=== PATIENT | female | born 1935 | race Caucasian/White ===

== ENCOUNTER → 2016-05-20 | Outpatient (REF) | payer MEDICARE ==
[2016-05-20 14:19] LABS: BASO % 0.6 % (0.0-1.0); EOS # 0.2 K/mm3 (0.0-0.50); EOS % 3.8 % (0.0-3.0); LARGE UNSTAINED CELL # 0.1 K/mm3 (0.0-0.4); LARGE UNSTAINED CELL % 1.9 % (0.0-4.0); LYMPH # 1.2 K/mm3 (1.5-4.5); LYMPH % 17.9 % (24.0-44.0); MEAN CORPUSCULAR HEMOGLOBIN 30.7 pg (27.0-33.0); MEAN CORPUSCULAR HGB CONC 33.1 g/dl (32.0-36.5); MEAN CORPUSCULAR VOLUME 92.9 fl (80.0-96.0); MONO # 0.5 K/mm3 (0.0-0.8); MONO % 6.9 % (0.0-5.0); NEUTROPHILS # 4.6 K/mm3 (1.8-7.7); PLATELET COUNT, AUTOMATED 251 k/mm3 (150-450); RED CELL DISTRIBUTION WIDTH 12.5 % (11.5-14.5); WHITE BLOOD COUNT 6.6 K/mm3 (4.0-10.0)
[2016-05-20 14:41] LABS: FOLATE > 24.0 NG/ML; VITAMIN B12 LEVEL 651 PG/ML
[2016-05-20 14:42] LABS: ALBUMIN 3.8 GM/DL (3.2-5.2); ALBUMIN/GLOBULIN RATIO 1.27 (1.00-1.93); ALKALINE PHOSPHATASE 67 U/L (45-117); ALT/SGPT 22 U/L (12-78); ANION GAP 8 MEQ/L (8-16); AST/SGOT 13 U/L (15-37); BILIRUBIN,TOTAL 0.4 MG/DL (0.2-1.0); BLOOD UREA NITROGEN 19 MG/DL (7-18); CALCIUM LEVEL 9.6 MG/DL (8.8-10.2); CARBON DIOXIDE LEVEL 30 MEQ/L (21-32); CHLORIDE LEVEL 105 MEQ/L (98-107); GLOMERULAR FILTRATION RATE > 60.0 (>32); GLUCOSE, FASTING 95 MG/DL (83-110); POTASSIUM SERUM 4.1 MEQ/L (3.5-5.1); SODIUM LEVEL 143 MEQ/L (136-145); TOTAL PROTEIN 6.8 GM/DL (6.4-8.2)
[2016-05-20 15:28] LABS: ERYTHROCYTE SEDIMENTATION RATE 49 mm/hr (0-30)
[2016-05-22 00:17] LABS: Lyme Disease IgG/IgM Antibodie <0.91 ISR (0.00-0.90); Lyme Disease IgM Ab Quantitati <0.80 index (0.00-0.79)
[2016-05-23 12:58] LABS: ALBUMIN 3.93 GM/DL (3.29-5.55); ALBUMIN % 57.8 % (55.8-66.1); GAMMA GLOBULIN % 10.2 % (11.1-18.8)
[2016-05-24 00:06] LABS: VITAMIN E LEVEL 12.9 mg/L (6.5-21.5)
== END ==
LOC: M LABNEURO 13:53
PROVIDERS: ATTEND Psychiatry & Neurology Neurology
DX: G31.84 Mild cognitive impairment of uncertain or unknown etiology (principal)

== ENCOUNTER 2017-12-28 05:41 | Day surgery (SDC) | payer MEDICARE ==
[2017-12-28] MEDS: PROPARACAINE 0.5% OPHTH SOL 15ML OS (06:30)
[2017-12-28] MEDS: OFLOXACIN 0.3 % (OCUFLOX) OPTH SOL 5ML OS (06:30)
[2017-12-28] MEDS: PHENYLEPHRINE 2.5% OPHTH SOL 2ML OS (06:30)
[2017-12-28] MEDS: TROPICAMIDE 1% OPHTH SOLN 2ML OS (06:30)
[2017-12-28] MEDS ORDERED: fentaNYL 100 MCG/2 ML INJECTION (J3010) As Ordered (06:58)
[2017-12-28] MEDS ORDERED: MIDAZOLAM INJ 2 MG/2 ML VIAL (J2250) As Ordered (06:58)
[2017-12-28] MEDS ORDERED: ONDANSETRON 4MG/2ML VIAL (J2405) As Ordered (06:58)
[2017-12-28] MEDS: DUOVISC (0.50ML VISCOAT/0.55ML PROVISC) OPHTH KIT As Ordered (07:30)
[2017-12-28] MEDS: BALANCED SALT IRRIGATION SOLUTION 500ML BAG (FOR OR EYE MACHINE) As Ordered ×2 (07:30)
[2017-12-28] MEDS: POVIDONE-IODINE 5% OPHTH PREP SOL 30ML As Ordered (07:30)
[2017-12-28] MEDS: LIDOCAINE 0.75%/EPINEPHRINE 0.025% IN BSS 1ML SYR INTRACAMERAL (OR ONLY) As Ordered ×2 (07:30)
== END 2017-12-28 08:20 | disposition home or self-care (01) ==
LOC: M SDC 05:41
DX: H25.12 Age-related nuclear cataract, left eye (principal); E78.5 Hyperlipidemia, unspecified; Z88.0 Allergy status to penicillin; Z79.82 Long term (current) use of aspirin; Z79.899 Other long term (current) drug therapy
CPT/HCPCS: 66984

== ENCOUNTER 2018-01-04 13:30 | Day surgery (SDC) | payer MEDICARE ==
[2018-01-04] MEDS: PROPARACAINE 0.5% OPHTH SOL 15ML OD (13:57)
[2018-01-04] MEDS: PHENYLEPHRINE 2.5% OPHTH SOL 2ML OD (13:57)
[2018-01-04] MEDS: OFLOXACIN 0.3 % (OCUFLOX) OPTH SOL 5ML OD (13:57)
[2018-01-04] MEDS: TROPICAMIDE 1% OPHTH SOLN 2ML OD (13:57)
[2018-01-04] MEDS ORDERED: fentaNYL 100 MCG/2 ML INJECTION (J3010) As Ordered (15:38)
[2018-01-04] MEDS ORDERED: MIDAZOLAM INJ 2 MG/2 ML VIAL (J2250) As Ordered (15:39)
[2018-01-04] MEDS: POVIDONE-IODINE 5% OPHTH PREP SOL 30ML As Ordered (15:46)
[2018-01-04] MEDS: DUOVISC (0.50ML VISCOAT/0.55ML PROVISC) OPHTH KIT As Ordered ×2 (15:50→15:51)
[2018-01-04] MEDS: LIDOCAINE 0.75%/EPINEPHRINE 0.025% IN BSS 1ML SYR INTRACAMERAL (OR ONLY) As Ordered (15:51)
[2018-01-04] MEDS: BALANCED SALT IRRIGATION SOLUTION 500ML BAG (FOR OR EYE MACHINE) As Ordered (15:51)
== END 2018-01-04 16:53 | disposition home or self-care (01) ==
LOC: M SDC 13:30
DX: H25.11 Age-related nuclear cataract, right eye (principal); E78.00 Pure hypercholesterolemia, unspecified; R41.3 Other amnesia; M12.9 Arthropathy, unspecified; Z88.0 Allergy status to penicillin; Z79.899 Other long term (current) drug therapy; Z79.82 Long term (current) use of aspirin; Z90.710 Acquired absence of both cervix and uterus; Z96.652 Presence of left artificial knee joint; Z87.19 Personal history of other diseases of the digestive system
CPT/HCPCS: 66984

== ENCOUNTER → 2018-02-02 | Outpatient (REF) | payer MEDICARE ==
[2018-02-02 13:46] LABS: BASO # 0.1 10^3/uL (0.0-0.2); EOS # 0.3 10^3/uL (0.0-0.50); EOS % 4.5 % (0.0-3.0); HEMATOCRIT 38.6 % (36.0-47.0); HEMOGLOBIN 12.6 g/dl (12.0-15.5); IMMATURE GRANULOCYTE % 0.3 % (0-3.0); LYMPH # 1.5 10^3/uL (1.5-4.5); LYMPH % 24.6 % (24.0-44.0); MEAN CORPUSCULAR HEMOGLOBIN 29.9 pg (27.0-33.0); MEAN CORPUSCULAR HGB CONC 32.6 g/dl (32.0-36.5); MEAN CORPUSCULAR VOLUME 91.5 fl (80.0-96.0); MONO # 0.4 10^3/uL (0.0-0.8); MONO % 6.9 % (0.0-5.0); NEUTROPHILS # 3.7 10^3/uL (1.8-7.7); NEUTROPHILS % 62.7 % (36.0-66.0); PLATELET COUNT, AUTOMATED 221 10^3/uL (150-450); RED BLOOD COUNT 4.22 10^6/uL (4.00-5.40); RED CELL DISTRIBUTION WIDTH 13.2 % (11.5-14.5); WHITE BLOOD COUNT 5.9 10^3/uL (4.0-10.0)
[2018-02-02 14:02] LABS: RHEUMATOID FACTOR QUANT < 10.0 IU/ML (<15.0)
[2018-02-02 14:09] LABS: ESTIMATED AVERAGE GLUCOSE 105 MG/DL (60-110); HEMOGLOBIN A1c 5.3 %
[2018-02-02 14:16] LABS: ERYTHROCYTE SEDIMENTATION RATE 13 mm/hr (0-30)
[2018-02-02 15:51] LABS: FOLATE > 24.0 NG/ML
[2018-02-03 10:37] LABS: ANTINUCLEAR ANTIBODIES DIRECT Negative (Negative)
[2018-02-04 14:13] LABS: VITAMIN E(ALPHA TOCOPHEROL) 21.6 mg/L (9.0-29.0); VITAMIN E(GAMMA TOCOPHEROL) 0.3 mg/L (0.5-4.9)
[2018-02-07 08:48] LABS: VITAMIN B1 LEVEL WHOLE BLOOD 178.7 nmol/L (66.5-200.0); VITAMIN B6,PYRIDOXAL PHOSPHATE 49.4 ug/L (2.0-32.8)
== END ==
LOC: M LABNEURO 11:12
DX: R41.3 Other amnesia (principal)
CPT/HCPCS: 82746